=== PATIENT | female | born 1990 | race Caucasian/White ===

== ENCOUNTER 2016-04-19 03:02 | Inpatient (IN) | payer SELFPAY ==
[~2016-04-19 03:02] MED LIST: NORMAL SALINE 10 ML SYRINGE FLUSH IVP PRN
[2016-04-19] MEDS ORDERED: METHYLERGONOVINE MALEATE 0.2 MG/1 ML VIAL IM PRN ×2 (03:29→05:41)
[2016-04-19] MEDS ORDERED: ONDANSETRON 4 MG/2 ML VIAL IVP PRN ×2 (03:29→05:41)
[2016-04-19] MEDS ORDERED: Famotidine Inj 20 MG in Normal Saline Flush 10 ML IVP PRN ×4 (03:29)
[2016-04-19] MEDS ORDERED: CefOXitin Inj 2 GM in Sodium Chloride 0.9% 100 ML IV PRN (03:29)
[2016-04-19] MEDS ORDERED: Metoclopramide Inj 10 MG/2 ML VIAL IV PRN (03:29)
[2016-04-19] MEDS ORDERED: TERBUTALINE SULFATE 1 MG/1 ML SDV SUBCUT PRN (03:29)
[2016-04-19] MEDS ORDERED: fentaNYL Inj 100 MCG/2 ML VIAL IV PRN (03:29)
[2016-04-19] MEDS ORDERED: NORMAL SALINE 10 ML SYRINGE FLUSH IVP PRN ×2 (03:29→05:41)
[2016-04-19] MEDS ORDERED: MISOPROSTOL 200 MCG TABLET RECTAL PRN (03:29)
[2016-04-19] MEDS ORDERED: Lidocaine 1% 10 MG/ML - 20 ML VIAL SUBCUT PRN (03:29)
[2016-04-19] MEDS ORDERED: Carboprost Inj 250 MCG/ML AMP IM PRN ×2 (03:29→05:41)
[2016-04-19] MEDS ORDERED: CITRIC ACID/SODIUM CITRATE 30 ML CUP PO PRN (03:29)
[2016-04-19] MEDS ORDERED: OXYTOCIN 10 UNIT/1 ML IM PRN (03:29)
[2016-04-19] MEDS ORDERED: LIDOCAINE W/ SODIUM BICARB 0.5 ML SYR SUBD PRN (03:29)
[2016-04-19] MEDS ORDERED: CALCIUM CARBONATE 500 MG (TUMS) CHEWABLE TABLET PO PRN ×2 (03:29→05:41)
[2016-04-19] MEDS ORDERED: Lactated Ringers-OB Dept 1,000 ML PRIMARY IV SCH (03:30)
[2016-04-19] MEDS ORDERED: Oxytocin 20 Units + LR 1,000 ML IV SCH ×2 (03:30→05:41)
[2016-04-19 03:56] LABS: HEMATOCRIT 41.2 % (37.0-47.0); HEMOGLOBIN 13.7 g/dL (12.0-16.0); MEAN CORPUSCULAR HEMOGLOBIN 27.8 PG (27-31); MEAN CORPUSCULAR HGB CONC 33.3 g/dL (33-37); MEAN PLATELET VOLUME 11.9 FL (7.4-12.2); RDW COEFFICIENT OF VARIATION 14.2 % (11.5-14.5); RED BLOOD COUNT 4.92 10^6/uL (4.20-5.40); WHITE BLOOD COUNT 9.93 10^3/uL (4.8-10.8)
--- NOTE | 2016-04-19 05:28 | OB.DEL.SUM ---
Delivery Note Delivery Summary: 25 yo G3 now P3 at 39 4/7 weeks gestation by 1st trimester u/s and LMP presented in active labor at 8/100/-2. Approximately 45 minutes later, AROM with clear fluid. She progressed to complete shortly thereafter. At 04:43 patient delivered a TAGA male in PUSHPA presentation over an intact perineum. No nuchal cord. Baby was placed on mom's abdomen. Cord doubly clamped and cut by dad. Intact placenta delivered at 04:46 spontaneously. Three vessel cord noted. Cord gases collect and cord blood sample. EBL 200cc. She did have a small 1st degree perineal laceration that was repaired in routine fashion with 3 -0 vicryl rapide. Apgars 8,10. - Patient Problems (1) Normal spontaneous vaginal delivery Current Visit: Yes Status: Acute
[2016-04-19] MEDS ORDERED: BENZOCAINE/MENTHOL SPRAY 56 GM BOTTLE TOPICAL PRN (05:41)
[2016-04-19] MEDS ORDERED: ACETAMINOPHEN 325 MG TABLET PO PRN (05:41)
[2016-04-19] MEDS ORDERED: Nalbuphine Inj 20 MG/ML Ampule IVP PRN (05:41)
[2016-04-19] MEDS ORDERED: diphenhydrAMINE 50 MG/1 ML VIAL IVP PRN (05:41)
[2016-04-19] MEDS ORDERED: LANOLIN HPA 40 GM TUBE TOPICAL PRN (05:41)
[2016-04-19] MEDS ORDERED: Ondansetron ODT Tab 4 MG TAB PO PRN (05:41)
[2016-04-19] MEDS ORDERED: diphenhydrAMINE 25 MG CAPSULE PO PRN (05:41)
[2016-04-19] MEDS ORDERED: MISOPROSTOL 200 MCG TABLET RECTAL ONE (05:41)
[2016-04-19] MEDS ORDERED: OXYTOCIN 10 UNIT/1 ML IM ONE (05:41)
[2016-04-19] MEDS ORDERED: GLYCERIN/WITCH HAZEL 1 BOX TOPICAL PRN (05:41)
[2016-04-19] MEDS ORDERED: Methylergonovine Tab 0.2 MG TAB PO PRN (05:41)
[2016-04-19] MEDS: IBUPROFEN 800 MG TABLET PO PRN ×3 (06:19→20:28)
[2016-04-19] MEDS ORDERED: Lidocaine Inj 1% 20 ML ONE (06:34)
[2016-04-19] MEDS: DOCUSATE 100 MG CAPSULE PO SCH ×2 (09:11→20:32)
[2016-04-19] MEDS: HYDROcodone-APAP 5 MG -325 MG TABLET PO PRN ×3 (10:34→20:28)
[2016-04-19 19:10] VITALS: RESP 16
[2016-04-20] MEDS: HYDROcodone-APAP 5 MG -325 MG TABLET PO PRN ×3 (00:04→09:34)
[2016-04-20] MEDS: IBUPROFEN 800 MG TABLET PO PRN (04:59)
[2016-04-20] MEDS ORDERED: Prenatal Multivitamin Tab 1 TAB TAB PO SCH (09:00)
[2016-04-20] MEDS: DOCUSATE 100 MG CAPSULE PO SCH (09:30)
[2016-04-20 09:53] VITALS: TEMP 97.9
--- NOTE | 2016-04-20 11:57 | DCSUMMARY ---
Hospitalization Summary Admit Date: 04/19/16 Discharge Date: 04/20/16 Primary Diagnosis:: Term , s/p Delivery Type: Vaginal Hospital Course: 25 yo G3 now P3 arrived to labor and delivery in active labor at 39 4/7 weeks gestation by 1st trimester u/s and LMP. She delivered approximately 2 hours later after AROM. Uncomplicated delivery. She is breast feeding, baby has latched well already. Mom has experienced increased cramping this as compared to her prior two, norco has helped. Exam - Vitals Vital Signs: Vital Signs Temperature 97.9 F Temperature Source Oral Pulse Rate [Pulse Oximeter] 76 Pulse Rate 87 Respiratory Rate 16 Blood Pressure [Right Arm] 117/56 Blood Pressure 129/74 Pulse Ox 97 Oxygen Delivery Method Room Air Height 5 ft 2 in Weight 129 lb 9.6 oz - General General Appearance: POSITIVE: No Acute Distress - Head Head Exam: POSITIVE: Normal Inspection - Respiratory Respiratory Exam: POSITIVE: Clear to Auscultation - Bilaterally, Breathing Non Labored - Cardiovascular Cardiovascular Exam: POSITIVE: RRR, No Murmur - GI/Abdominal GI/Abdominal Exam: POSITIVE: Normal Bowel Sounds Additional GI/Abdominal Exam Details: Uterus firm at the umbilicus - External Exam: POSITIVE: Deferred - Extremities Extremities Exam: POSITIVE: Normal Inspection, No Edema Present. NEGATIVE: Calf Tenderness - Neurological Neurological Exam: POSITIVE: Alert, Oriented x 3 - Psychiatric Psychiatric Exam: POSITIVE: Normal Affect, Normal Mood - Integumentary Integumentary Exam: POSITIVE: Normal Color Patient Problems - Patient Problem List (1) Normal spontaneous vaginal delivery Current Visit: Yes Status: Acute Support Text: 25 yo G3 now P3, PPD 1. Doing quite well, pain well controlled, moderate lochia. Ready for d/c to home Decline contraception at this time Breast feeding D/c to home today, f/u in 6 weeks. Rx for norco sent to pharmacy, #10. To continue PNV, ibuprofen, colace prn.
== END 2016-04-20 11:00 | disposition home or self-care (01) | DRG 775 ==
LOC: OBOP 03:02 → OBIP 03:35
PROVIDERS: ADMIT Student in an Organized Health Care Education/Training Program; ATTEND Student in an Organized Health Care Education/Training Program
PROC: 10E0XZZ Delivery of Products of Conception, External Approach (ICD-10-PCS; principal; 2016-04-19)
PROC: 0HQ9XZZ Repair Perineum Skin, External Approach (ICD-10-PCS; 2016-04-19)
DX: O70.0 First degree perineal laceration during delivery (principal); Z3A.39 39 weeks gestation of pregnancy; Z37.0 Single live birth
CPT/HCPCS: 81003; 85027; J2001; J7120

== ENCOUNTER 2017-09-05 17:26 | Inpatient (IN) ==
[2017-09-05] MEDS ORDERED: Carboprost Inj 250 MCG/ML AMP IM PRN (22:08)
[2017-09-05] MEDS ORDERED: ePHEDrine Inj 5 MG in Normal Saline Flush 1 ML IVP PRN (22:08)
[2017-09-05] MEDS ORDERED: diphenhydrAMINE 50 MG/1 ML VIAL IVP PRN (22:08)
[2017-09-05] MEDS ORDERED: BUTORPHANOL TARTRATE 2 MG/1 ML VIAL IVP PRN (22:08)
[2017-09-05] MEDS ORDERED: CITRIC ACID/SODIUM CITRATE 30 ML CUP PO PRN (22:08)
[2017-09-05] MEDS ORDERED: Lidocaine 1% 10 MG/ML - 20 ML VIAL SUBCUT PRN (22:08)
[2017-09-05] MEDS ORDERED: LIDOCAINE HCL 2 % 10 ML JELLY URO-JECT TOPICAL PRN (22:08)
[2017-09-05] MEDS ORDERED: CefOXitin Inj 2 GM in Sodium Chloride 0.9% 100 ML IV PRN (22:08)
[2017-09-05] MEDS ORDERED: Phenylephrine Inj 50 MCG in Normal Saline Flush 0.5 ML IVP PRN (22:08)
[2017-09-05] MEDS ORDERED: FAMOTIDINE 20 MG/2 ML VIAL IVP PRN ×2 (22:08)
[2017-09-05] MEDS ORDERED: Naloxone Inj 0.01 MG in Normal Saline Flush 1 ML IVP PRN (22:08)
[2017-09-05] MEDS ORDERED: LIDOCAINE W/ SODIUM BICARB 0.5 ML SYR SUBD PRN (22:08)
[2017-09-05] MEDS ORDERED: OXYTOCIN 10 UNIT/1 ML IM PRN (22:08)
[2017-09-05] MEDS ORDERED: Metoclopramide Inj 10 MG/2 ML VIAL IV PRN (22:08)
[2017-09-05] MEDS ORDERED: METHYLERGONOVINE MALEATE 0.2 MG/1 ML VIAL IM PRN (22:08)
[2017-09-05] MEDS ORDERED: CALCIUM CARBONATE 500 MG (TUMS) CHEWABLE TABLET PO PRN (22:08)
[2017-09-05] MEDS ORDERED: TERBUTALINE SULFATE 1 MG/1 ML SDV SUBCUT PRN (22:08)
[2017-09-05] MEDS ORDERED: Nalbuphine Inj 20 MG/ML Ampule IVP PRN (22:08)
[2017-09-05] MEDS ORDERED: fentaNYL Inj 100 MCG/2 ML VIAL IV PRN (22:08)
[2017-09-05] MEDS ORDERED: MISOPROSTOL 200 MCG TABLET RECTAL PRN (22:08)
[2017-09-05] MEDS ORDERED: ONDANSETRON 4 MG/2 ML VIAL IVP PRN (22:08)
[2017-09-05] MEDS ORDERED: NALOXONE 0.4 MG/1 ML VIAL IVP PRN (22:08)
[2017-09-05] MEDS ORDERED: Oxytocin 20 Units + LR 20 UNIT/1,000 ML BAG IV SCH (22:15)
[2017-09-05] MEDS: Lactated Ringers-OB Dept 1,000 ML PRIMARY IV SCH (23:05)
--- NOTE | 2017-09-06 00:19 | OB.PROGRES ---
Interval History: 26 yo at 38 5/7 weeks gestation via 12 week u/s and LMP presented this afternoon with concern for possible LOF, small amount of clear. Amnisure was negative. She has been jess consistently since and made progress from 4- 8 cm. I was called by the RNs for possible sinusoidal pattern. She had been bouncing on the ball and then FHR tracing changed. OB hx notable for early SAB 2010, 2012 41 week , 2014 37 week PROM with 10 day NICU stay RDS, 2017 39 week . PMH benign FH - Grandfather T2DM PSH - negative SH - former smoker 2 pack year history, no etoh or illicit drug use This has been uncomplicated thus far. Objective - Cervical Exam Cervical Exam: /0, anterior, soft, bag intact [place]: q3 mins Heart Rate: period of pseudosinusouidal x23 minutes without perfectly uniform oscillations, period before with tachycardia with variable decels. Intrauterine resuscitation led to baseline 130, moderate variability, accels, no decels. - Vital Signs Last Taken Vital Signs: Vital Signs - Last Taken Temperature 98.5 F 09/05/17 23:00 Pulse Rate 93 09/05/17 17:41 Respiratory Rate 20 09/05/17 23:00 Blood Pressure 126/67 09/05/17 17:41 Pulse Ox 98 09/05/17 23:00 Assessment and Plan - Patient Problems (1) Term Current Visit: Yes Status: Acute Code(s): Z34.80 - Encounter for supervision of other normal , unspecified trimester Support Text: 26 yo at 38 5/7 in active labor. -Period of concerning tracing with pseudosinusoidal tracing - abdomen soft, no bleeding. U/s ordered for BPP, placenta observation, pending. Tracing now category I with good variability and accels. No e/o chorioamnionitis, mom afebrile, abdomen soft between contractions. -Continue close observation. -GBS negative -Not interested in epidural.
[2017-09-06] MEDS: Lactated Ringers-OB Dept 1,000 ML PRIMARY IV SCH (00:30)
--- NOTE | 2017-09-06 01:01 | DI ---
EXAM: US Biophysical Profile Without Non-Stress Testing CLINICAL HISTORY: ITS.REASON DISTRESS Physician Notes: PLEASE ADD ADDITIONAL IMAGING OF PLACENTA.Tech Comments: TECHNIQUE: Real-time ultrasound of the maternal pelvis for biophysical profile evaluation with image documentation. COMPARISON: No relevant prior studies available. FINDINGS: breathing movements: Nonvisualized. Score 0/2.. Gross body movements: Present. Score 2/2. tone: Present. Score 2/2. Qualitative amniotic fluid volume: 10.5 cm. Score 2/2. Cardiac activity is present with a heart rate of 124 244 bpm. Vertex position. Limited characterization of the anatomy and placenta due to advanced age. Placenta appears posterior and along the rightward uterus. IMPRESSION: Biophysical profile ultrasound. Score 6/8 due to lack of visualized breathing movements during examination.
--- NOTE | 2017-09-06 01:14 | OB.PROGRES ---
Interval History: Mostly back pain, increasing in intensity AROM 0040 - clear fluid with tinge of blood Objective - Cervical Exam Cervical Exam: [place]: q3-5 mins Heart Rate: baseline 125, mod variability, accels, no decels Heart Rate Interpretation Category: Category I - Vital Signs Last Taken Vital Signs: Vital Signs - Last Taken Temperature 98.7 F 09/06/17 00:15 Pulse Rate 99 09/06/17 00:15 Respiratory Rate 21 09/06/17 00:15 Blood Pressure 132/70 09/06/17 00:15 Pulse Ox 100 09/06/17 00:15 - Additional Details Additional Details: BPP 8/10, no breathing. GARCÍA 10. Placenta posterior, no obvious abruption Assessment and Plan - Patient Problems (1) Term Current Visit: Yes Status: Acute Code(s): Z34.80 - Encounter for supervision of other normal , unspecified trimester Support Text: 26 yo at 38 6/7 weeks gestation -s/p AROM -BPP 8/10, Category I now -Continue close observation -GBS negative -Does not desire epidural
[2017-09-06 01:27] LABS: Hematocrit [HCT] 32.5 % (37.0-47.0); Hemoglobin [HGB] 10.2 g/dL (12.0-16.0); MEAN CORPUSCULAR HGB CONC 31.4 g/dL (33-37); MEAN CORPUSCULAR VOLUME 79.7 FL (81-99); MEAN PLATELET VOLUME 11.8 FL (7.4-12.2); RED BLOOD COUNT 4.08 10^6/uL (4.20-5.40)
[2017-09-06] MEDS: Oxytocin 20 Units + LR 20 UNIT/1,000 ML BAG IV SCH ×2 (02:08→03:52)
[2017-09-06] MEDS ORDERED: diphenhydrAMINE 25 MG CAPSULE PO PRN (02:41)
[2017-09-06] MEDS ORDERED: GLYCERIN/WITCH HAZEL 1 BOX TOPICAL PRN (02:41)
[2017-09-06] MEDS ORDERED: Nalbuphine Inj 20 MG/ML Ampule IVP PRN (02:41)
[2017-09-06] MEDS ORDERED: BENZOCAINE/MENTHOL SPRAY 56 GM BOTTLE TOPICAL PRN (02:41)
[2017-09-06] MEDS ORDERED: diphenhydrAMINE 50 MG/1 ML VIAL IVP PRN (02:41)
[2017-09-06] MEDS ORDERED: ACETAMINOPHEN 325 MG TABLET PO PRN (02:41)
[2017-09-06] MEDS ORDERED: ONDANSETRON 4 MG/2 ML VIAL IVP PRN (02:41)
[2017-09-06] MEDS ORDERED: LANOLIN HPA 40 GM TUBE TOPICAL PRN (02:41)
[2017-09-06] MEDS ORDERED: CALCIUM CARBONATE 500 MG (TUMS) CHEWABLE TABLET PO PRN (02:41)
[2017-09-06] MEDS ORDERED: Ondansetron ODT Tab 4 MG TAB PO PRN (02:41)
[2017-09-06] MEDS ORDERED: LIDOCAINE HCL 2 % 10 ML JELLY URO-JECT TOPICAL PRN (02:41)
--- NOTE | 2017-09-06 02:46 | OB.DEL.SUM ---
Delivery Note Delivery Summary: 26 yo G5 now P4014 was presented this afternoon with concern for possible LOF. Amnisure was negative but she was having regular contractions. She did not make cervical change after the first hour of walking, but contractions became more intense and with her history of precipitous delivery she was admitted for observation. She progressed well after admission. At about 1100 she had a 23 minute stretch of a pseudosinusoidal pattern (oscillations but with some areas of moderate variability). Just prior to my arrival she converted to a Category I tracing with moderate variability, accels, no decels. There was no e/o abruption on eam, BPP was 8/10 (2 off for lack of respirations),placenta looked ok on US. I then AROM'd her with clear fluid, tinge of blood. The baby tolerated labor well (as long as mom wasn't on her R side). At about 0155 mom had the urge to push. After approx 5 minutes of pushing, at 0202 she delivered a TAGA female infant in PUSHPA position. No nuchal cord was noted. Her head, shoulders and body were delivered without complications. was placed on mom's abdomen. Cord clamping was delayed approx 1 min. Cord was doubly clamped and cut by the father. A section of cord was collected for gases. Cord blood was then collected. Her placenta delivered spontaneously, intact, with 3-vessel cord at 0207. Her perineum was inspected and noted only to have a small hemostatic 1st degree tear. EBL 200mL. Mom and baby tolerated delivery well. Apgars 9,9. Weight 6 lbs 15.1 ozs. - Patient Problems (1) Term Current Visit: Yes Status: Acute Code(s): Z34.80 - Encounter for supervision of other normal , unspecified trimester (2) Vaginal delivery Current Visit: Yes Status: Acute Code(s): O80 - Encounter for full-term uncomplicated delivery
[2017-09-06 02:56] VITALS: RESP 16
[2017-09-06] MEDS: IBUPROFEN 800 MG TABLET PO PRN ×3 (03:17→21:35)
[2017-09-06] MEDS: HYDROcodone-APAP 5 MG -325 MG TABLET PO PRN ×4 (05:51→21:33)
[2017-09-06] MEDS: DOCUSATE 100 MG CAPSULE PO SCH ×2 (08:34→21:33)
[2017-09-07 01:48] VITALS: BP 114/52; TEMP 98.9; O2SAT 96
[2017-09-07 06:38] LABS: Hematocrit [HCT] 32.2 % (37.0-47.0); Hemoglobin [HGB] 10.1 g/dL (12.0-16.0); MEAN CORPUSCULAR HEMOGLOBIN 25.9 PG (27-31); MEAN CORPUSCULAR HGB CONC 31.4 g/dL (33-37); MEAN CORPUSCULAR VOLUME 82.6 FL (81-99); RED BLOOD COUNT 3.9 10^6/uL (4.20-5.40)
[2017-09-07] MEDS ORDERED: Prenatal Multivitamin Tab 1 TAB TAB PO SCH (09:00)
[2017-09-07] MEDS: DOCUSATE 100 MG CAPSULE PO SCH (10:32)
--- NOTE | 2017-09-07 11:54 | OB.PROGRES ---
Subjective Post Op Day: 1 Pain Management: PO Weems Catheter: No Flatus: Yes Diet: Regular Feeding Method: Exculsively Ambulating: Yes Concerns / Additional Information: Moderate lochia. Feeling well. Requesting to be discharged home. Objective - General General Appearance: POSITIVE: No Acute Distress, Cooperative - Cardiovacular Cardiovascular Exam: POSITIVE: RRR, No Murmur Edema: +1 Pedal Edema Extremities: Negative Raissa's - Bilaterally - Respiratory Respiratory Exam: POSITIVE: Clear to Auscultation - Bilaterally, Breathing Non Labored - Abdomen Bowel Sounds: Present Assesstment / Plan (1) Vaginal delivery Current Visit: Yes Status: Acute Assessment / Plan: -routine cares. -A+ blood type -rubella immune -breast feeding going well. -ok to d/c home today.
== END 2017-09-07 12:25 | disposition home or self-care (01) | DRG 775 ==
LOC: OBOP 17:26 → OBIP 22:08
PROVIDERS: ADMIT Student in an Organized Health Care Education/Training Program; ATTEND Family Medicine